=== PATIENT | male | born 1970 | race Caucasian/White ===

== ENCOUNTER 2016-12-04 07:11 | Outpatient (CLI) | payer OTHER, SELFPAY ==
[2016-12-04 08:16] LABS: ALT (SGPT) 28 U/L (8-55); AST (SGOT) 17 U/L (5-34); Albumin 4.2 g/dL (3.5-5.0); Alkaline Phosphatase 88 U/L (40-150); Anion Gap 15 mmol/L (10-20); BUN (Urea Nitrogen) 17 mg/dL (8.9-20.6); Bilirubin, Total 0.6 mg/dL (0.2-1.2); Calc. Creatinine Clearance 0 mL/min (70-130); Calcium 9.6 mg/dL (7.8-10.44); Carbon Dioxide 26 mmol/L (22-29); Cardiac Risk 5.1 (Less than 4.5); Chloride 101 mmol/L (98-107); Cholesterol 258 mg/dl (< 200 Desired); Clarity Clear (Clear); Estimated GFR-MDRD 68; Globulin 3.8 g/dL (2.4-3.5); Glucose 281 mg/dL (70-105); Glucose, Urine (Dipstick) >=1000 mg/dL (Negative); HDL Cholesterol 51 mg/dL (>60 Neg Risk); LDL Cholesterol, Calculated 165 mg/dL; Leukocyte Negative (Negative); Nitrite Negative (Negative); Potassium 4.8 mmol/L (3.5-5.1); Protein, Urine (Dipstick) 30 mg/dL (Neg-Trace); Sodium 137 mmol/L (136-145); Specific Gravity, Urine 1.025 (1.005-1.030); Triglycerides 208 mg/dL (Less than 150); pH, Urine 5.5 (5.0-9.0)
[2016-12-04 08:17] LABS: Bilirubin Negative (Negative); Blood, Urine Negative (Negative); Hemoglobin A1c 10.1 % (4.0-6.0); RBC/HPF None Seen HPF (0-3); Squamous Epithelial 0-3 HPF (0-3); Urobilinogen 0.2 mg/dL (0.2-1.0); WBC/HPF 0-3 HPF (0-3)
[2016-12-04 08:18] LABS: Bacteria/HPF None Seen HPF (None Seen)
[2016-12-04 08:24] LABS: #Basophils 0.1 thou/uL (0.0-0.2); #Eosinphils 0.2 thou/uL (0.0-0.7); #Lymphocytes 2.5 thou/uL (1.20-3.40); #Monocytes 0.5 thou/uL (0.11-0.59); #Neutrophils 3.4 thou/uL (1.40-6.50); %Basophils 1.5 % (0.0-1.0); %Eosinophils 2.9 % (0.0-10.0); %Lymphocytes 37.5 % (21.0-51.0); %Monocytes 7.5 % (0.0-10.0); %Neutrophils 50.6 % (42.0-75.0); Hemoglobin 15.8 g/dL (14.0-18.0); Mean Corpuscular HGB CONC 32.7 g/dL (32.0-36.0); Mean Corpuscular Hemoglobin 29.7 pg (27.0-31.0); Mean Corpuscular Volume 90.9 fl (80.0-94.0); Mean Platelet Volume 10.3 fL (7.4-10.4); Platelet Count 190 thou/uL (130-400); RBC Distribution Width 11.9 % (11.5-14.5); Red Blood Cell (RBC) Count 5.32 mill/uL (4.70-6.10); White Blood Cell (WBC) Count 6.7 thou/uL (4.8-10.8)
[2016-12-04 08:32] LABS: Thyroid Stimulating Hormone 1.1431 uIU/mL (0.35-4.94)
[2016-12-04 16:54] LABS: Creatinine, Urine 197.35 mg/dL (63-166); Microalbumin Urine 8.1 mg/dL (0.5-50.0)
== END 2016-12-04 07:12 | disposition home or self-care (01) ==
LOC: MADLABBHPM 07:11
PROVIDERS: ATTEND Family Medicine
DX: R73.9 Hyperglycemia, unspecified (principal)
CPT/HCPCS: 36415; 80053; 80061; 81001; 82043; 83036; 84439; 84443; 85025

== ENCOUNTER 2017-09-27 13:25 | Emergency (ER) | payer SELFPAY ==
[2017-09-27] MEDS ORDERED: Ibuprofen 800 MG TAB ONE (14:19)
--- NOTE | 2017-09-27 15:28 | RAD ---
LEFT SHOULDER 3 VIEWS: Date: 09/27/17 HISTORY: Fell from horse, left shoulder pain. 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 There is a comminuted fracture involving th e mid shaft of the left clavicle with 3.0 cm overlap of the medial fracture fragments. POS: C
== END 2017-09-27 16:22 | disposition home or self-care (01) ==
LOC: MADERS 13:25
DX: S42.032A Displaced fracture of lateral end of left clavicle, initial encounter for closed fracture (principal); I10 Essential (primary) hypertension; V80.010A Animal-rider injured by fall from or being thrown from horse in noncollision accident, initial encounter

== ENCOUNTER 2023-04-17 11:45 | Emergency (ER) | payer SELFPAY ==
[~2023-04-17 11:45] MED LIST: Iopamidol 370 76% 100 ML VIAL ONE
[2023-04-17] MEDS ORDERED: Albuterol 200 PUFF (6.7GM INHALER) ONE (13:51)
[2023-04-17] MEDS ORDERED: Lactated Ringer's 1,000 ML ONE ×2 (13:51→14:57)
[2023-04-17] MEDS ORDERED: Amoxicillin/Potassium Clav 875 MG TAB ONE (13:59)
[2023-04-17 14:06] LABS: PTT 30.1 sec (22.9-36.1)
[2023-04-17 14:12] LABS: Hemoglobin 14.5 g/dL (14.0-18.0); Mean Corpuscular HGB CONC 32.9 g/dL (32.0-36.0); Mean Corpuscular Volume 91.2 fl (78.0-98.0); Mean Platelet Volume 10.3 fL (7.4-10.4); Platelet Count 241 10x3/uL (130-400); RBC Distribution Width 11.5 % (11.5-14.5); Red Blood Cell (RBC) Count 4.82 mill/uL (4.70-6.10); White Blood Cell (WBC) Count 9.6 10x3/uL (4.8-10.8)
[2023-04-17 14:19] LABS: Troponin I Less than 0.010 ng/mL (< 0.028)
[2023-04-17 14:21] LABS: ALT (SGPT) 17 U/L (8-55); AST (SGOT) 17 U/L (5-34); Albumin 4.1 g/dL (3.5-5.0); Alkaline Phosphatase 102 U/L (40-110); Anion Gap 18 mmol/L (10-20); BUN (Urea Nitrogen) 17 mg/dL (8.4-25.7); Bilirubin, Total 0.7 mg/dL (0.2-1.2); Calc. Creatinine Clearance 0 mL/min (70-130); Calcium 8.7 mg/dL (7.8-10.44); Carbon Dioxide 25 mmol/L (22-29); Chloride 94 mmol/L (98-107); Estimated GFR 75; Globulin 3.9 g/dL (2.4-3.5); Glucose 295 mg/dL (70-105); Lipase 20 U/L (8-78); Potassium 4.3 mmol/L (3.5-5.1); Sodium 133 mmol/L (136-145)
[2023-04-17 14:47] LABS: Band 3 % (5-11); Lymphocytes 15 % (21-51); MDiff Complete? YES; Monocytes 7 % (0-10); Neutrophil 75 % (42-75); Nucleated RBC (Manual Ct) 1 % (0); Platelet Adequacy Comment Appears Adequate
[2023-04-17 17:53] LABS: Troponin I Less than 0.010 ng/mL (< 0.028)
== END 2023-04-17 19:10 | disposition home or self-care (01) ==
LOC: MADERS 11:45
DX: J01.90 Acute sinusitis, unspecified (principal); J20.9 Acute bronchitis, unspecified; E11.9 Type 2 diabetes mellitus without complications; K76.0 Fatty (change of) liver, not elsewhere classified; I10 Essential (primary) hypertension; Z20.822 Contact with and (suspected) exposure to COVID-19
CPT/HCPCS: 71046; 71275; 80053; 83605; 83690; 83735; 84443; 84484; 85025; 85379; 85610; 85730; 87040; 87635; 87804; 93005; 94760; 96360; 96361; J7120; Q9967

== ENCOUNTER 2023-12-17 06:49 | Emergency (ER) | payer SELFPAY ==
[2023-12-17] MEDS ORDERED: Ondansetron PF 4 MG/2 ML Vial ONE (07:40)
[2023-12-17] MEDS ORDERED: Meclizine HCl 25 MG TAB ONE (07:40)
[2023-12-17 08:04] LABS: #Basophils 0.1 thou/uL (0.0-0.2); #Eosinphils 0.1 thou/uL (0.0-0.7); #Lymphocytes 2.2 thou/uL (1.20-3.40); #Monocytes 0.5 thou/uL (0.11-0.59); #Neutrophils 4.8 thou/uL (1.40-6.50); %Basophils 0.9 % (0.0-1.0); %Lymphocytes 28.9 % (21.0-51.0); %Monocytes 6.2 % (0.0-10.0); Hematocrit 48.6 % (42.0-52.0); Hemoglobin 15.2 g/dL (14.0-18.0); Mean Corpuscular HGB CONC 31.2 g/dL (32.0-36.0); Mean Corpuscular Hemoglobin 28.7 pg (27.0-31.0); Mean Corpuscular Volume 91.8 fl (78.0-98.0); Mean Platelet Volume 8.8 fL (7.4-10.4); Platelet Count 173 10x3/uL (130-400); RBC Distribution Width 11.8 % (11.5-14.5); Red Blood Cell (RBC) Count 5.29 mill/uL (4.70-6.10); White Blood Cell (WBC) Count 7.6 10x3/uL (4.8-10.8)
[2023-12-17 08:18] LABS: Prothrombin Time 12.8 sec (12.0-14.7)
[2023-12-17 08:58] LABS: Troponin I Less than 0.010 ng/mL (< 0.028)
[2023-12-17 09:02] LABS: Anion Gap 17 mmol/L (10-20); Carbon Dioxide 19 mmol/L (22-29); Chloride 103 mmol/L (98-107); Critical Call Chemistry @ers.mag 0900; Potassium 4.1 mmol/L (3.5-5.1); Sodium 135 mmol/L (136-145)
[2023-12-17 09:03] LABS: Calc. Creatinine Clearance 0 mL/min (70-130); Estimated GFR 72
[2023-12-17 09:04] LABS: BUN (Urea Nitrogen) 17 mg/dL (8.4-25.7); Glucose 407 mg/dL (70-105)
[2023-12-17 09:12] LABS: PTT 22.6 sec (22.9-36.1)
[2023-12-17 15:54] LABS: Hemoglobin A1c 12.3 % (4.0-6.0)
== END 2023-12-17 09:15 | disposition home or self-care (01) ==
LOC: MADERS 06:49
DX: H81.10 Benign paroxysmal vertigo, unspecified ear (principal); E11.65 Type 2 diabetes mellitus with hyperglycemia; R29.700 NIHSS score 0; I10 Essential (primary) hypertension
CPT/HCPCS: 36415; 70450; 80048; 83036; 84484; 85025; 85610; 85730; 93005; 96374; J2405